=== PATIENT | female | born 1945 | race Caucasian/White ===

== ENCOUNTER → 2019-05-22 | Outpatient (CLI) | payer MEDICARE, OTHER ==
--- NOTE | 2019-05-22 16:50 | Diagnostic Imaging Report ---
INDICATION: Right hip pain and back pain. Time of exam 2:50 p.m. FINDINGS: Three views of the lumbar spine were obtained. Curvature and alignment is normal. Vertebral body heights are maintained. No acute compression fracture is seen. There is generalized degenerative disc disease with variable disc space narrowing and marginal spurring. Lower lumbar facet arthropathy is noted. IMPRESSION: Lumbar spondylosis. No acute bony abnormality is detected. Dictated by: Dictated on workstation # [id number]
--- NOTE | 2019-05-22 17:34 | Diagnostic Imaging Report ---
INDICATION: Right hip pain and right low back pain. TIME OF EXAM: 2:48 p.m. FINDINGS: Two views of the right hip are obtained. Femoroacetabular alignment is normal. There are degenerative changes with superior joint space narrowing. Femoral head and neck are intact. No fractures are seen. IMPRESSION: Degenerative changes. No acute bony abnormality is detected. Dictated by: Dictated on workstation # [id number]
== END ==
LOC: RAD 14:25
PROVIDERS: ATTEND Family Medicine
DX: M16.11 Unilateral primary osteoarthritis, right hip (principal); M47.816 Spondylosis without myelopathy or radiculopathy, lumbar region
CPT/HCPCS: 72100; 73502

== ENCOUNTER 2019-07-04 11:12 | Outpatient (RCR) | payer MEDICARE, OTHER | END 2019-09-05 | disposition home or self-care (01) | PROVIDERS: ATTEND Family Medicine | DX: M51.36 Other intervertebral disc degeneration, lumbar region (principal); M25.551 Pain in right hip ==

== ENCOUNTER 2019-09-30 01:06 | Emergency (ER) | payer MEDICARE, OTHER ==
[~2019-09-30] VITALS: Ht 167 cm; Wt 86.7 kg
[2019-09-30] MEDS ORDERED: MELO7.5T46 (01:30)
[2019-09-30] MEDS ORDERED: VALA1000 (01:30)
[2019-09-30] MEDS ORDERED: AMOX1TAB12 (01:30)
[2019-09-30] MEDS ORDERED: PRD20T (01:30)
[2019-09-30] MEDS ORDERED: LACTATED RINGERS 1,000 ML IV ONE (02:51)
[2019-09-30 03:15] LABS: BASOPHILS % (AUTO) 0 % (0-10); EOSINOPHILS % (AUTO) 0 % (0-10); HEMATOCRIT 39 % (35-52); HEMOGLOBIN 13.4 G/DL (11.5-16.0); LYMPHOCYTES # (AUTO) 1.2 X 10^3 (1.0-4.0); LYMPHOCYTES % (AUTO) 12 % (12-44); MEAN CORPUSCULAR HEMOGLOBIN 31 PG (25-34); MEAN CORPUSCULAR HGB CONC 34 G/DL (32-36); MEAN CORPUSCULAR VOLUME 90 FL (80-99); MEAN PLATELET VOLUME 9.8 FL (7.4-10.4); MONOCYTES # (AUTO) 0.3 X 10^3 (0.0-1.0); MONOCYTES % (AUTO) 2 % (0-12); NEUTROPHILS # (AUTO) 8.8 X 10^3 (1.8-7.8); NEUTROPHILS % (AUTO) 86 % (42-75); PLATELET COUNT 410 10^3/uL (130-400); RED CELL DISTRIBUTION WIDTH 12.9 % (10.0-14.5); WHITE BLOOD COUNT 10.2 10^3/uL (4.3-11.0)
[2019-09-30 03:32] LABS: ALANINE AMINOTRANSFERASE 24 U/L (0-55); ALBUMIN 4.6 GM/DL (3.2-4.5); ALKALINE PHOSPHATASE 68 U/L (40-136); BILIRUBIN,TOTAL 0.9 MG/DL (0.1-1.0); BUN/CREATININE RATIO 27; CALCIUM 10.1 MG/DL (8.5-10.1); CARBON DIOXIDE 25 MMOL/L (21-32); CHLORIDE 103 MMOL/L (98-107); CREATININE SERUM 1.11 MG/DL (0.60-1.30); GFR ESTIMATED 48; GLUCOSE 133 MG/DL (70-105); MAGNESIUM 2.1 MG/DL (1.6-2.4); POTASSIUM 3.7 MMOL/L (3.6-5.0); SODIUM 142 MMOL/L (135-145); TOTAL PROTEIN 7.2 GM/DL (6.4-8.2)
[2019-09-30 03:52] LABS: TSH (THYROID ANALYZER) 0.58 UIU/ML (0.35-4.94)
--- NOTE | 2019-09-30 04:20 | NUR ---
bed assignment received from [facility] [id number] [facility] number [phone]
--- NOTE | 2019-09-30 04:23 | NUR ---
cr. [facility] ems shift capt. contacted for transfer.
--- NOTE | 2019-09-30 04:28 | ED Neurological Problem ---
General Chief Complaint: Oral/Throat Problems Stated Complaint: SWOLLEN THROAT, TONGUE & MOUTH FOR A WEEK Nursing Triage Note: DIFFICULTY SWALLOWING X1 WEEK. 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 Symptoms started on September 23 when she was traveling near [place]. She was seen at the [facility] and had an MRI and CT performed. She reports no stroke or tumor was identified. She then saw her primary care provider, Dr. Saul, on September 25. 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 She was started on Augmentin and prednisone. Tonight she is concerned because the deficits have progressed and she is now having difficulty swallowing to the extent that she cannot take her pills, has difficulty lying down, and is having a hard time staying hydrated. She is feeling weak as a result. She complains of mucus and saliva pooling in the back of her throat. She has had a little bit of shortness of breath as well. She has a swallow eval and carotid artery ultrasound scheduled for Wednesday. Allergies and Home Medications Allergies Coded Allergies: No Known Drug Allergies (Unverified , 09/30/19) Patient Home Medication List Home Medication List Reviewed: Yes Review of Systems Review of Systems Constitutional: no symptoms reported Eyes: No Symptoms Reported Ears, Nose, Mouth, Throat: see HPI Respiratory: see HPI Cardiovascular: no symptoms reported Gastrointestinal: no symptoms reported Genitourinary: no symptoms reported : No Musculoskeletal: no symptoms reported Skin: no symptoms reported Psychiatric/Neurological: See HPI Endocrine: No Symptoms Reported Hematologic/Lymphatic: No Symptoms Reported Past [id number]-[id number]-Irrqtt Hx Past Med/Social Hx: Reviewed and Corrections made Patient Social History Alcohol Use: Denies Use Recreational Drug Use: No Smoking Status: Never a Smoker 2nd Hand Smoke Exposure: No Recent Foreign Travel: No Contact w/Someone Who Travel: No Recent Infectious Disease Expo: No Recent Hopitalizations: No Physical Abuse: No Sexual Abuse: No Mistreated: No Immunizations Up To Date Tetanus Booster (TDap): Unknown Date of Influenza Vaccine: Jul 24, 2019 Seasonal Allergies Seasonal Allergies: No Past Medical History Surgeries: Yes (CATARACTS) Section, Gallbladder, Hysterectomy Respiratory: No Cardiac: No Neurological: No : 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 oz. kg; 31.00 BMI Method: General Appearance: WD/WN, no apparent distress HEENT: PERRL/EOMI, normal ENT inspection, TMs normal, pharynx normal Neck: normal inspection Respiratory: lungs clear, normal breath sounds, no respiratory distress, no acc essory muscle use Cardiovascular: regular rate, rhythm, no edema, no murmur Gastrointestinal: normal bowel sounds, soft Extremities: normal inspection, no pedal edema Neurologic/Psychiatric: alert, normal mood/affect, oriented x 3, other (there appears to be slight facial drooping of the right mouth and left periorbital muscles. Patient overcomes these weaknesses with effort. Patient has muffled dysarthria. She also cannot move her tongue laterally in either direction.) Crainal Nerves: normal hearing, PERRL, abnormal speech, facial asymmetry Coordination/Gait: normal finger to nose (normal heel to adame), normal gait Skin: normal color, warm/dry Progress/Results/Core Measures Results/Orders Lab Results Laboratory Tests Test 09/30/19 03:05 Range/Units White Blood Count 10.2 4.3-11.0 10^3/uL Red Blood Count 4.34 L 4.35-5.85 10^6/uL Hemoglobin 13.4 11.5-16.0 G/DL Hematocrit 39 35-52 % Mean Corpuscular Volume 90 80-99 FL Mean Corpuscular Hemoglobin 31 25-34 PG Mean Corpuscular Hemoglobin Concent 34 32-36 G/DL Red Cell Distribution Width 12.9 10.0-14.5 % Platelet Count 410 H 130-400 10^3/uL Mean Platelet Volume 9.8 7.4-10.4 FL Neutrophils (%) (Auto) 86 H 42-75 % Lymphocytes (%) (Auto) 12 12-44 % Monocytes (%) (Auto) 2 0-12 % Eosinophils (%) (Auto) 0 0-10 % Basophils (%) (Auto) 0 0-10 % Neutrophils # (Auto) 8.8 H 1.8-7.8 X 10^3 Lymphocytes # (Auto) 1.2 1.0-4.0 X 10^3 Monocytes # (Auto) 0.3 0.0-1.0 X 10^3 Eosinophils # (Auto) 0.0 0.0-0.3 10^3/uL Basophils # (Auto) 0.0 0.0-0.1 10^3/uL Sodium Level 142 135-145 MMOL/L Potassium Level 3.7 3.6-5.0 MMOL/L Chloride Level 103 98-107 MMOL/L Carbon Dioxide Level 25 21-32 MMOL/L Anion Gap 14 5-14 MMOL/L Blood Urea Nitrogen 30 H 7-18 MG/DL Creatinine 1.11 0.60-1.30 MG/DL Estimat Glomerular Filtration Rate 48 BUN/Creatinine Ratio 27 Glucose Level 133 H 70-105 MG/DL Calcium Level 10.1 8.5-10.1 MG/DL Corrected Calcium 8.5-10.1 MG/DL Magnesium Level 2.1 1.6-2.4 MG/DL Total Bilirubin 0.9 0.1-1.0 MG/DL Aspartate Amino Transf (AST/SGOT) 22 5-34 U/L Alanine Aminotransferase (ALT/SGPT) 24 0-55 U/L Alkaline Phosphatase 68 40-136 U/L Total Protein 7.2 6.4-8.2 GM/DL Albumin 4.6 H 3.2-4.5 GM/DL TSH [place] Testing 0.58 0.35-4.94 UIU/ML My Orders Orders - FERNANDO WILKINS MD Cbc With Automated Diff (09/30/19 02:51) Comprehensive Metabolic Panel (09/30/19 02:51) Magnesium (09/30/19 02:51) Thyroid Analyzer (09/30/19 02:51) Ed Iv/Invasive Line Start (09/30/19 02:51) Lactated Ringers (Lr 1000 Ml Iv Solution (09/30/19 02:51) Medications Given in ED Current Medications Medications Dose Ordered Sig/Dinesh Route Start Time Stop Time Status Last Admin Dose Admin Lactated Ringer's 1,000 ml @ 0 mls/hr Q0M ONCE IV 09/30/19 02:51 09/30/19 02:57 DC 09/30/19 03:07 0 MLS/HR Vital Signs/I&O 09/30/19 01:21 Temp 36.3 Pulse 72 Resp 18 B/P (MAP) 154/86 (108) Pulse Ox 95 O2 Delivery Room Air Blood Pressure Mean: 108 Progress Progress Note #1: Time: 04:30 Progress Note Basic labs were evaluated. Patient was hydrated with a liter of LR. Case was discussed with Dr. Song, stroke neurologist at [facility]. She is concerned this could be a bulbar stroke versus a neuromuscular problem such as myasthenia gravis. Due to the progressive nature of the symptoms and potential for airway compromise, she has requested the patient be transferred to [facility] by EMS. [facility] is an appropriate facility as they have comprehensive stroke and ENT services as well as emergent MRI capability. Patient needs repeat MRI as soon as possible and prompt evaluation by a neurology team. Progress Note #2: Time: 04:53 Progress Note EMS transportation is not available through [facility] until after 08:00. Patient elects to go by private vehicle and understands she is incurring risk of aspiration, choking, or airway problems in doing so. [facility] has been updated. Departure Impression Primary Impression: Dysarthria Additional Impressions: Dysphagia Qualified Codes: R13.10 - Dysphagia, unspecified Decreased oral intake Disposition: XF [facility] Condition: Stable Departure-Patient Inst. Decision time for Depature: 04:53 Referrals: OLU SAUL DO (PCP/Family) Primary Care Physician Patient Instructions: Dysarthria, Dysphagia (DC) Add. Discharge Instructions: Please go directly to [facility] in [place], [place]. Present your transfer papers upon arrival. You may take [address]. Turned left on [address] Take a right on [address] off [address] Temperature the main hospital entrance past the ER entrance. The address is [address] [place] [address]. Use GPS to confirm your navigation. If you have any questions or concerns, please call the transfer center at [phone]. All discharge instructions reviewed with patient and/or family. Voiced understanding. FERNANDO WILKINS MD Sep 30, 2019 04:28
--- NOTE | 2019-09-30 04:42 | NUR ---
[facility] ems shift capt. called back declining transfer.
--- NOTE | 2019-09-30 04:43 | NUR ---
pt/ wish to decline ems transfer et. drive to [facility] themselves. erp. notified.
[2019-09-30 05:02] VITALS: BP 143/76
== END 2019-09-30 05:12 | disposition short-term general hospital (02) ==
LOC: EDUNIT# 01:06 → ER 01:10
DX: R47.1 Dysarthria and anarthria (principal); R10.13 Epigastric pain; R63.8 Other symptoms and signs concerning food and fluid intake; Z90.710 Acquired absence of both cervix and uterus
CPT/HCPCS: 36415; 80053; 83735; 84443; 85025; 96360; 96361

== ENCOUNTER → 2020-05-08 | Outpatient (CLI) | payer MEDICARE, OTHER ==
[~2020-05-08] MED LIST: AMOX1TAB12; MELO7.5T46; PRD20T; VALA10007
--- NOTE | 2020-05-08 15:21 | Diagnostic Imaging Report ---
PROCEDURE: US right lower extremity venous. TECHNIQUE: Multiple Real-time grayscale images were obtained over the right lower extremity in various projections. Additional spectral analysis and color Doppler duplex images were also obtained. INDICATION: Right leg swelling. FINDINGS: There is no evidence of right lower extremity DVT. The right lower extremity deep venous system shows normal compressibility with normal response to augmentation and Valsalva. No fluid collection or mass is detected. IMPRESSION: No evidence of right lower extremity DVT. Dictated by: Dictated on workstation # [id number]
== END ==
LOC: RAD 14:45
PROVIDERS: ATTEND Family Medicine
DX: M79.89 Other specified soft tissue disorders (principal)

== ENCOUNTER → 2020-10-15 | Outpatient (CLI) | payer MEDICARE, OTHER ==
--- NOTE | 2020-10-15 11:26 | Diagnostic Imaging Report ---
INDICATION: Postmenopausal female. Right hip replacement. COMPARISON: 08/16/2014 FINDINGS: AP Spine L1-L4: [BMD (g/cm2): 1.130] [T-Score: -0.6] [Z-Score: 0.1] [BMD Previous: 1.201] [BMD % Change: -5.9] LT Hip Neck: [BMD (g/cm2): 0.735] [T-Score: -2.2] [Z-Score: -0.9] LT Hip Total: [BMD (g/cm2):0.874] [T-Score:-1.1] [Z-Score: -0.1] [BMD Previous: 0.814] [BMD % Change: -9.7] RT Hip Neck: [BMD (g/cm2):na] [T-Score:na] [Z-Score:na] RT Hip Total: [BMD (g/cm2):na] [T-score:na] [Z-Score:na] [BMD Previous:na] [BMD % Change:na] Interval changes in the spine and left hip density are statistically significant. World Health Organization criteria for BMD interpretation classify patients as Normal (T-score at or above -1.0), Osteopenic (T-score between -1.0 and -2.5) or Osteoporotic (T-score at or below -2.5). LIMITATIONS AND MODIFICATION: Degenerative change in the lumbar spine may falsely elevate bone density. FRACTURE RISK (FRAX SCORE): The ten year probability of (%): Major Osteoporotic Fracture: [13.8] Hip Fracture: [3.8] IMPRESSION: 1. Osteopenia (Low bone mass). 2. Bone mineral density has decreased by a statistically significant amount, as detailed above. 3. See below National Osteoporosis Foundation guidelines on when to potentially initiate pharmacologic therapy. Based on the National Osteoporosis Foundation Guidelines, pharmacologic treatment should be initiated in any of the following, unless clinical conditions suggest otherwise: * Any patient with prior fragility fracture of the hip or vertebrae. A spine fracture indicates 5X risk for subsequent spine fracture and 2X risk for subsequent hip fracture. * Osteoporosis (T-score <-2.5). * Postmenopausal women and men age 50 and older with low bone mass/osteopenia (T-score between -1.0 and -2.5) by DXA and 10-year major osteoporotic fracture greater than 20% or a 10-year probability of hip fracture greater than 3%. These fracture risks are supplied above in the FRAX score, if applicable. * Clinician judgement and/or patient preferences may indicate treatment for people with 10-year fracture probabilities above or below these levels. Dictated by: Dictated on workstation # [id number]
== END ==
LOC: RAD 09:41
PROVIDERS: ATTEND Family Medicine
DX: M85.89 Other specified disorders of bone density and structure, multiple sites (principal); Z78.0 Asymptomatic menopausal state; Z96.641 Presence of right artificial hip joint
CPT/HCPCS: 77080

== ENCOUNTER → 2023-07-20 | Outpatient (CLI) | payer MEDICARE, OTHER ==
--- NOTE | 2023-07-20 14:06 | Diagnostic Imaging Report ---
INDICATION: Postmenopausal state. COMPARISON: 10/15/2020. FINDINGS: AP Spine L1-L4: [BMD (g/cm2): 1.103] [T-Score: -0.8] [Z-Score: -0.2] [BMD Previous: 1.130] [BMD % Change: -2.4] LT Hip Neck: [BMD (g/cm2): 0.733] [T-Score: -2.2] [Z-Score: -0.9] LT Hip Total: [BMD (g/cm2):0.893] [T-Score:-0.9] [Z-Score: 0.2] [BMD Previous: 0.874] [BMD % Change: 2.2] RT Hip Neck: [BMD (g/cm2):na] [T-Score:na] [Z-Score:na] RT Hip Total: [BMD (g/cm2):na] [T-score:na] [Z-Score:na] [BMD Previous:na] [BMD % Change:na] *Indicates significant change from prior examination based on 95% confidence level. World Health Organization criteria for BMD interpretation classify patients as Normal (T-score at or above -1.0), Osteopenic (T-score between -1.0 and -2.5) or Osteoporotic (T-score at or below -2.5). LIMITATIONS AND MODIFICATION: None. FRACTURE RISK (FRAX SCORE): The ten year probability of (%): Major Osteoporotic Fracture: [27.4] Hip Fracture: [17.5] IMPRESSION: 1. Osteopenia (Low bone mass). 2. No significant change in bone mineral density since prior examination. 3. See below National Osteoporosis Foundation guidelines on when to potentially initiate pharmacologic therapy. Based on the National Osteoporosis Foundation Guidelines, pharmacologic treatment should be initiated in any of the following, unless clinical conditions suggest otherwise: * Any patient with prior fragility fracture of the hip or vertebrae. A spine fracture indicates 5X risk for subsequent spine fracture and 2X risk for subsequent hip fracture. * Osteoporosis (T-score <-2.5). * Postmenopausal women and men age 50 and older with low bone mass/osteopenia (T-score between -1.0 and -2.5) by DXA and 10-year major osteoporotic fracture greater than 20% or a 10-year probability of hip fracture greater than 3%. These fracture risks are supplied above in the FRAX score, if applicable. * Clinician judgement and/or patient preferences may indicate treatment for people with 10-year fracture probabilities above or below these levels. Dictated by: Dictated on workstation # [id number]
== END ==
LOC: RAD 13:14
PROVIDERS: ATTEND Family Medicine
DX: M85.89 Other specified disorders of bone density and structure, multiple sites (principal); Z78.0 Asymptomatic menopausal state
CPT/HCPCS: 77080